=== PATIENT | female | born 1955 | race Caucasian/White ===

== ENCOUNTER 2018-01-03 05:19 | Inpatient (IN) | payer MEDICARE, MEDICAID ==
[2018-01-03] VITALS (68 sets, daily range): BP systolic 48–215; BP diastolic 17–201
[~2018-01-03] VITALS: Ht 170.2 cm; Wt 85.7 kg
[~2018-01-03 05:19] MED LIST: ALPR-340 PO; ASPI-1159 PO; BUDE6.9H IH; DICL50TA9 PO
[2018-01-03] MEDS ORDERED: LACTATED RINGERS 1,000 ML IV SCH (05:55)
[2018-01-03] MEDS ORDERED: THROMBIN (BOVINE) 5000 UNITS/VIAL TOP ONE ×2 (06:24→06:25)
[2018-01-03] MEDS ORDERED: BACITRACIN ZINC 15GM TUBE TOP ONE (06:24)
[2018-01-03] MEDS ORDERED: POVIDONE-IODINE OINT 28.4GM TOP ONE (06:24)
[2018-01-03] MEDS ORDERED: NORMAL SALINE 0.9% 10 ML SYR ONE (06:25)
[2018-01-03] MEDS ORDERED: GELATIN SPONGE,COMPRESSED SZ 100 ONE (06:25)
[2018-01-03] MEDS ORDERED: LIDOCAINE HCL/EPINEPHRINE 1%-EPI 1:100,000 20 ML VIAL ONE (06:25)
[2018-01-03] MEDS ORDERED: BACITRACIN 50,000 UNITS/VIAL ONE (06:25)
[2018-01-03 06:28] LABS: BASOPHILS % 1.2 % (0.0-2.0); EOSINOPHILS % 1.3 % (0.0-5.0); HEMATOCRIT. 44.2 % (36.0-48.0); HEMOGLOBIN. 14.7 g/dL (12.0-16.0); LYMPHOCYTES % 28.7 % (20.0-50.0); MEAN CORPUSCULAR HEMOGLOBIN 28.7 pg (28.0-32.0); MEAN CORPUSCULAR VOLUME 86.1 fL (81.0-99.0); MEAN PLATELET VOLUME 8.3 fl (7.4-10.4); MONOCYTES % 6.7 % (2.0-8.0); NEUTROPHILS % 62.1 % (40.0-76.0); PLATELET 294 x1000/uL (130-400); RED BLOOD CELL COUNT 5.13 mill/uL (4.2-5.4); RED CELL DISTRIBUTION WIDTH 14.9 % (11.6-14.6)
[2018-01-03] MEDS ORDERED: FENTANYL CITRATE/PF 50MCG/ML 2ML VIAL ONE (07:04)
[2018-01-03] MEDS ORDERED: NEOSTIGMINE METHYLSULFATE 1MG/ML 10 ML VIAL ONE (07:04)
[2018-01-03] MEDS ORDERED: GLYCOPYRROLATE 0.2 MG/ML 2ML VIAL ONE ×2 (07:04→09:06)
[2018-01-03] MEDS ORDERED: PROPOFOL 200MG/20ML VIAL IV ONE ×2 (07:04→08:29)
[2018-01-03] MEDS ORDERED: MIDAZOLAM HCL 2 MG/2 ML VIAL ONE (07:04)
[2018-01-03] MEDS ORDERED: ROCURONIUM BROMIDE 10MG/ML VIAL 5ML IV ONE (07:04)
[2018-01-03] MEDS ORDERED: DEXAMETHASONE 4MG/ML 1ML VIAL ONE (07:17)
[2018-01-03] MEDS ORDERED: ONDANSETRON HCL 4MG/2ML VIAL ONE (07:17)
[2018-01-03] MEDS ORDERED: SUCCINYLCHOLINE CHLORIDE 200MG/10ML VIAL IV ONE (07:18)
[2018-01-03] MEDS ORDERED: HYDROMORPHONE HCL/PF 2MG/ML (OR) ONE (07:53)
[2018-01-03] MEDS ORDERED: MANNITOL 20% 500 ML IV ONE (07:53)
[2018-01-03] MEDS ORDERED: PHENYTOIN SODIUM 250MG/5ML VIAL IV ONE (08:09)
[2018-01-03] MEDS ORDERED: ONDANSETRON HCL 4MG/2ML VIAL IV PRN (09:00)
[2018-01-03] MEDS ORDERED: MORPHINE SULFATE 4 MG/ML CPJ (NOT FOR IM USE) IV PRN (09:00)
[2018-01-03] MEDS ORDERED: ALBU05 IH (09:20)
[2018-01-03] MEDS ORDERED: HYDR-4009 PO (09:20)
[2018-01-03] MEDS ORDERED: ALPR1TAB2 PO (09:20)
[2018-01-03] MEDS ORDERED: IPRATROPIUM/ALBUTEROL 0.5-3(2.5)MG/3ML NEB HHN PRN (10:00)
[2018-01-03] MEDS ORDERED: NICOTINE 21MG PATCH TD ONE (10:00)
[2018-01-03] MEDS ORDERED: NICARDIPINE 100 MG in SODIUM CHLORIDE 0.9% 60 ML IV PRN (10:22)
[2018-01-03] MEDS: DEXT 5%/LACTATED RINGERS 1,000 ML IV SCH (10:34)
[2018-01-03] MEDS ORDERED: PHENYTOIN SODIUM 500 MG in SODIUM CHLORIDE 0.9% 50 ML IV NR (11:30)
[2018-01-03] MEDS: BUDESONIDE 0.5MG/2ML NEB HHN SCH (11:57)
[2018-01-03] MEDS: IPRATROPIUM/ALBUTEROL 0.5-3(2.5)MG/3ML NEB HHN SCH (11:57)
[2018-01-03] MEDS: DEXAMETHASONE 4MG/ML 1ML VIAL IV SCH ×2 (12:01→17:46)
[2018-01-03] MEDS: NICOTINE 21MG PATCH TD SCH (12:01)
[2018-01-03 12:13] LABS: CLARITY URINE CLEAR (CLEAR); COLOR URINE YELLOW (YELLOW); KETONES URINE NEGATIVE (NEGATIVE); LEUKOCYTE ESTERASE URINE NEGATIVE (NEGATIVE); NITRITE URINE NEGATIVE (NEGATIVE); OCCULT BLOOD URINE NEGATIVE (NEGATIVE); PH URINE 5.5 (4.5-8.0); PROTEIN URINE NEGATIVE (NEGATIVE); UROBILINOGEN URINE 0.2 E.U./dL (0.2-1.0)
[2018-01-03] MEDS: CEFAZOLIN 1000MG PREMIX 50 ML IV SCH ×2 (13:20→22:17)
[2018-01-03 13:38] LABS: CHLORIDE 111 mEq/L (98-107)
[2018-01-03] MEDS ORDERED: CEFAZOLIN SODIUM 1000MG/VIAL IV SCH (14:00)
[2018-01-03 14:09] LABS: BG BASE EXCESS -2.9 mmol/L (-2.0-2.0); BG DEOXYHEMOGLOBIN 0.8 % (0.0-5.0); BG FRACTION INSPIRED OXYGEN 50; BG HCO3 ACT 21.4 mmol/L (22.0-26.0); BG OXYGEN SATURATION 99.2 % (92.0-98.5); BG OXYHEMOGLOBIN 98.2 % (94.0-97.0); BG PH 7.391 (7.350-7.450); BG PO2 221.2 mmHg (75.0-100.0); BG SAMPLE SITE A-LINE; BG TIDAL VOLUME(mL) 500 mL; BG TOTAL HEMOGLOBIN 14.8 g/dL (12.0-18.0); BG VENT MODE VENT - A/C; BG VENT RATE 14 set
[2018-01-03] MEDS ORDERED: ACETAMINOPHEN 325MG TABLET NG PRN (16:15)
[2018-01-03] MEDS ORDERED: LORAZEPAM 2MG/ML CPJ IV PRN (16:15)
[2018-01-03] MEDS: MONTELUKAST SODIUM 10MG TABLET NG SCH (17:00)
[2018-01-03] MEDS ORDERED: DEXTROSE 50% WATER 50ML SYRINGE IV PRN (17:15)
[2018-01-03] MEDS: INSULIN LISPRO 100 UNITS/ML SUBCUT SCH (17:47)
[2018-01-03] MEDS: BLOOD SUGAR DIAGNOSTIC STRIP TEST SCH (17:51)
[2018-01-03] MEDS: PHENYTOIN SODIUM 100MG/2ML VIAL IV SCH (22:17)
[2018-01-04] VITALS (68 sets, daily range): BP systolic 92–146; BP diastolic 42–108
[2018-01-04] MEDS: IPRATROPIUM/ALBUTEROL 0.5-3(2.5)MG/3ML NEB HHN SCH ×4 (00:26→20:26)
[2018-01-04] MEDS: BUDESONIDE 0.5MG/2ML NEB HHN SCH ×3 (00:26→20:26)
[2018-01-04] MEDS: DEXAMETHASONE 4MG/ML 1ML VIAL IV SCH ×4 (01:08→17:49)
[2018-01-04 05:55] LABS: HEMATOCRIT. 45.4 % (36.0-48.0); HEMOGLOBIN. 14.9 g/dL (12.0-16.0); MEAN CORPUSCULAR HEMOGLOBIN 28.6 pg (28.0-32.0); MEAN CORPUSCULAR VOLUME 87.1 fL (81.0-99.0); MEAN PLATELET VOLUME 8.9 fl (7.4-10.4); PLATELET 272 x1000/uL (130-400); RED BLOOD CELL COUNT 5.21 mill/uL (4.2-5.4)
[2018-01-04] MEDS: BLOOD SUGAR DIAGNOSTIC STRIP TEST SCH ×4 (06:00→18:00)
[2018-01-04 06:04] LABS: CHLORIDE 109 mEq/L (98-107)
[2018-01-04 06:19] LABS: PHOSPHORUS 2.7 mg/dL (2.5-4.9)
[2018-01-04] MEDS: CEFAZOLIN 1000MG PREMIX 50 ML IV SCH ×3 (06:19→22:03)
[2018-01-04] MEDS: PHENYTOIN SODIUM 100MG/2ML VIAL IV SCH ×3 (06:19→22:03)
[2018-01-04] MEDS: INSULIN LISPRO 100 UNITS/ML SUBCUT SCH ×4 (06:21→18:00)
[2018-01-04 07:00] LABS: PLATELET ESTIMATE NORMAL
[2018-01-04] MEDS: DEXT 5%/LACTATED RINGERS 1,000 ML IV SCH (09:24)
[2018-01-04] MEDS: FAMOTIDINE 20MG/2ML VIAL IV SCH (09:29)
[2018-01-04] MEDS: NICOTINE 21MG PATCH TD SCH (09:30)
[2018-01-04] MEDS: LORAZEPAM 2MG/ML CPJ IV SCH ×3 (09:36→22:47)
[2018-01-04] MEDS: HYDROMORPHONE HCL/PF 2MG/ML CPJ IV PRN ×2 (10:37→22:03)
[2018-01-04] MEDS: MONTELUKAST SODIUM 10MG TABLET NG SCH (17:48)
[2018-01-05] VITALS (38 sets, daily range): BP systolic 97–136; BP diastolic 46–83
[2018-01-05] MEDS: DEXAMETHASONE 4MG/ML 1ML VIAL IV SCH ×4 (00:31→18:37)
[2018-01-05] MEDS: IPRATROPIUM/ALBUTEROL 0.5-3(2.5)MG/3ML NEB HHN SCH ×4 (01:39→22:10)
[2018-01-05] MEDS: DEXT 5%/LACTATED RINGERS 1,000 ML IV SCH ×2 (02:30→09:55)
[2018-01-05] MEDS: LORAZEPAM 2MG/ML CPJ IV SCH ×4 (03:30→22:14)
[2018-01-05] MEDS: INSULIN LISPRO 100 UNITS/ML SUBCUT SCH ×4 (06:00→17:24)
[2018-01-05] MEDS: BLOOD SUGAR DIAGNOSTIC STRIP TEST SCH ×4 (06:00→17:24)
[2018-01-05 06:02] LABS: HEMATOCRIT. 39.9 % (36.0-48.0); HEMOGLOBIN. 13.2 g/dL (12.0-16.0); MEAN CORPUSCULAR HEMOGLOBIN 28.6 pg (28.0-32.0); MEAN CORPUSCULAR VOLUME 86.7 fL (81.0-99.0); MEAN PLATELET VOLUME 9.1 fl (7.4-10.4); PLATELET 243 x1000/uL (130-400); RED BLOOD CELL COUNT 4.61 mill/uL (4.2-5.4); RED CELL DISTRIBUTION WIDTH 14.6 % (11.6-14.6)
[2018-01-05 06:13] LABS: CHLORIDE 109 mEq/L (98-107)
[2018-01-05] MEDS: PHENYTOIN SODIUM 100MG/2ML VIAL IV SCH ×3 (06:59→22:15)
[2018-01-05] MEDS: CEFAZOLIN 1000MG PREMIX 50 ML IV SCH (07:12)
[2018-01-05] MEDS: FAMOTIDINE 20MG/2ML VIAL IV SCH (09:54)
[2018-01-05] MEDS: NICOTINE 21MG PATCH TD SCH (09:55)
[2018-01-05 11:52] LABS: PLATELET ESTIMATE NORMAL
[2018-01-05] MEDS: BUDESONIDE 0.5MG/2ML NEB HHN SCH ×2 (13:54→22:10)
[2018-01-05] MEDS: HYDROMORPHONE HCL/PF 2MG/ML CPJ IV PRN ×3 (15:20→22:15)
[2018-01-05] MEDS: MONTELUKAST SODIUM 10MG TABLET NG SCH (17:28)
[2018-01-06] VITALS: BP 110/63
[2018-01-06] MEDS: HYDROMORPHONE HCL/PF 2MG/ML CPJ IV PRN ×3 (01:17→19:29)
[2018-01-06] MEDS: IPRATROPIUM/ALBUTEROL 0.5-3(2.5)MG/3ML NEB HHN SCH ×5 (02:13→21:59)
[2018-01-06 04:00] VITALS: BP 104/52
[2018-01-06] MEDS: LORAZEPAM 2MG/ML CPJ IV SCH ×4 (04:03→22:18)
[2018-01-06] MEDS: PHENYTOIN SODIUM 100MG/2ML VIAL IV SCH ×3 (05:35→22:18)
[2018-01-06] MEDS: DEXAMETHASONE 4MG/ML 1ML VIAL IV SCH ×2 (05:35)
[2018-01-06 06:43] LABS: HEMATOCRIT. 39.4 % (36.0-48.0); HEMOGLOBIN. 13.1 g/dL (12.0-16.0); LYMPHOCYTES % 9.7 % (20.0-50.0); MEAN CORPUSCULAR HEMOGLOBIN 28.5 pg (28.0-32.0); MEAN CORPUSCULAR VOLUME 85.7 fL (81.0-99.0); MONOCYTES % 4.9 % (2.0-8.0); NEUTROPHILS % 85.4 % (40.0-76.0); PLATELET 233 x1000/uL (130-400); RED CELL DISTRIBUTION WIDTH 14.5 % (11.6-14.6)
[2018-01-06 07:03] LABS: CHLORIDE 105 mEq/L (98-107)
[2018-01-06 08:00] VITALS: BP 103/49
[2018-01-06] MEDS: BUDESONIDE 0.5MG/2ML NEB HHN SCH (09:15)
[2018-01-06] MEDS: FAMOTIDINE 20MG/2ML VIAL IV SCH (10:00)
[2018-01-06] MEDS: NICOTINE 21MG PATCH TD SCH (11:42)
[2018-01-06 12:00] VITALS: BP 130/70
[2018-01-06 16:00] VITALS: BP 146/65
[2018-01-06] MEDS: MONTELUKAST SODIUM 10MG TABLET NG SCH (16:40)
[2018-01-06 20:00] VITALS: BP 109/61
[2018-01-07] VITALS: BP 110/65
[2018-01-07] MEDS: HYDROMORPHONE HCL/PF 2MG/ML CPJ IV PRN ×2 (03:26→11:52)
[2018-01-07 04:00] VITALS: BP_SYST 112; BP_SYST 121; BP_SYST 130; BP_DIAS 64; BP_DIAS 67; BP_DIAS 70
[2018-01-07] MEDS: LORAZEPAM 2MG/ML CPJ IV SCH ×3 (04:19→14:42)
[2018-01-07] MEDS: PHENYTOIN SODIUM 100MG/2ML VIAL IV SCH ×2 (05:14→14:42)
[2018-01-07 08:00] VITALS: BP 132/63
[2018-01-07] MEDS: FAMOTIDINE 20MG/2ML VIAL IV SCH (08:33)
[2018-01-07] MEDS: NICOTINE 21MG PATCH TD SCH (08:34)
[2018-01-07] MEDS ORDERED: DEXAMETHASONE 4MG TABLET PO SCH (09:00)
[2018-01-07] MEDS: BUDESONIDE 0.5MG/2ML NEB HHN SCH (09:40)
[2018-01-07] MEDS: IPRATROPIUM/ALBUTEROL 0.5-3(2.5)MG/3ML NEB HHN SCH ×2 (09:40→14:59)
[2018-01-07 11:45] VITALS: BP 140/65
[2018-01-07 14:15] VITALS: BP_SYST 125; BP_SYST 140; BP_DIAS 65; BP_DIAS 69
[2018-01-07 16:00] VITALS: BP 125/69
[2018-01-07] MEDS ORDERED: DEXAMETHASONE 4MG/ML 1ML VIAL PO SCH (17:00)
== END 2018-01-07 17:35 | disposition home or self-care (01) | DRG 25 ==
LOC: ORIP 05:19 → MICUSO 10:07 → 8WST 01-05 18:24 → 6EST 01-05 20:57
PROVIDERS: ADMIT Internal Medicine; ATTEND Internal Medicine
PROC: 00Q20ZZ Repair Dura Mater, Open Approach (ICD-10-PCS; 2018-01-03)
PROC: 0NQ00ZZ Repair Skull, Open Approach (ICD-10-PCS; 2018-01-03)
PROC: 5A1935Z Respiratory Ventilation, Less than 24 Consecutive Hours (ICD-10-PCS; 2018-01-03)
PROC: 00B10ZZ Excision of Cerebral Meninges, Open Approach (ICD-10-PCS; principal; 2018-01-03 07:00)
DX: D32.0 Benign neoplasm of cerebral meninges (principal); G93.40 Encephalopathy, unspecified; J96.90 Respiratory failure, unspecified, unspecified whether with hypoxia or hypercapnia; F13.20 Sedative, hypnotic or anxiolytic dependence, uncomplicated; R00.1 Bradycardia, unspecified; J44.9 Chronic obstructive pulmonary disease, unspecified; E11.65 Type 2 diabetes mellitus with hyperglycemia; D72.829 Elevated white blood cell count, unspecified; E78.5 Hyperlipidemia, unspecified; F17.210 Nicotine dependence, cigarettes, uncomplicated; F41.9 Anxiety disorder, unspecified; E66.9 Obesity, unspecified; I95.9 Hypotension, unspecified; G47.33 Obstructive sleep apnea (adult) (pediatric); G89.29 Other chronic pain; M19.90 Unspecified osteoarthritis, unspecified site; M47.816 Spondylosis without myelopathy or radiculopathy, lumbar region; T38.0X5A Adverse effect of glucocorticoids and synthetic analogues, initial encounter; Z86.011 Personal history of benign neoplasm of the brain; Z87.09 Personal history of other diseases of the respiratory system; Z88.5 Allergy status to narcotic agent
CPT/HCPCS: 36415; 36600; 70450; 70551; 71045; 80048; 80053; 81003; 82375; 82805; 82962; 83735; 84100; 84443; 85025; 86850; 86900; 88307; 93005; 93306; 97112; 97116; 97162; 97166; A4216; J0330; J0690; J1100; J1165; J1170; J1815; J2060; J2250; J2405; J2704; J2710; J3010; J3490; J7040; J7120; J7620; J7626; J8540

== ENCOUNTER → 2018-02-13 | Outpatient (CLI) | payer MEDICARE, MEDICAID ==
[~2018-02-13] MED LIST changes: +ALBU05 IH; -ALPR-340 PO; +ALPR1TAB2 PO; +HYDR-4009 PO
== END | disposition home or self-care (01) ==
LOC: CT 08:26
PROVIDERS: ATTEND Neurological Surgery
DX: G31.89 Other specified degenerative diseases of nervous system (principal); E78.5 Hyperlipidemia, unspecified; J44.9 Chronic obstructive pulmonary disease, unspecified
CPT/HCPCS: 70450